=== PATIENT | female | born 1975 | race Caucasian/White ===

== ENCOUNTER 2017-04-20 08:02 | Emergency (ER) | payer OTHER, MEDICARE, MEDICAID ==
--- NOTE | 2017-04-20 08:27 | ERNOTE ---
Abdominal HPI - General Chief Complaint: Abdominal Pain Time Seen by Provider: 04/20/17 08:07 Source: patient, family Exam Limitations: no limitations - Immun/Allergies/Home Medications Allergies/Adverse Reactions: Allergies codeine [Codeine] Allergy (Unknown, Verified 04/20/17 08:10) Home Medications: HOME MEDICATIONS Calcium Carbonate [Calcium] 500 mg PO DAILY 11/14/12 [Last Taken 11/13/12 09:00] Docusate Sodium [Colace] 100 mg PO DAILY 11/14/12 [Last Taken 11/12/12 21:00] Phenytoin Sodium Extended [Dilantin] 200 mg PO BIDWM 11/14/12 [Last Taken 09:00] Ferrous Sulfate [Iron] 325 mg PO DAILY 09/21/15 [Last Taken Unknown] Phenytoin Sodium Extended [Dilantin] 200 mg PO TIDWM #60 capsule 09/21/15 [Last Taken Unknown] Naproxen [Naprosyn] 500 mg PO BID #60 tablet 04/20/17 [Last Taken Unknown] - History of Present Illness Narrative: Patient has had 2 days of right lower quadrant abdominal pain. Yesterday she had burning on urination today the pain just appears to be more settled in the right lower quadrant. She rates the pain as moderate to severe in intensity and even the ride over, the jostling of her abdomen, causes pain. Timing: getting worse Quality: moderate, severe Activities at Onset: none Modifying Factors - (Worsens): Present: movement Associated Symptoms: Present: denies symptoms Prior Abdominal Problems: Present: none Review of Systems - Review of Systems Constitutional: Present: recent illness EYE: Present: no symptoms reported ENT: Present: no symptoms reported Respiratory: Present: no symptoms reported Cardiology: Present: no symptoms reported Gastrointestinal/Abdominal: Present: See HPI Genitourinary: Present: no symptoms reported Musculoskeletal: Present: no symptoms reported Skin: Present: no symptoms reported Neurological: Present: no symptoms reported Endocrine: Present: no symptoms reported Hematologic/Lymphatic: Present: no symptoms reported Psych: Present: no symptoms reported - Patient's Past Medical History Patient History - Medical: Seizures, Other Patient History - Cardiac/Respiratory: No pertinent hx Patient History - Cancer: No Hx of Cancer Patient History - Surgical Procedures: D & C, T & A Patient History - Other: None - Social History Living Situations: home Abuse History: No History of abuse Psych History: No pertinent hx Alcohol Use: none Drug Use: none Physical Exam - Physical Exam General Appearance: Present: wd/wn, alert, moderate distress Eye Exam: Normal inspection: bilateral, PERRL: bilateral Ears, Nose, Throat: Present: normal ENT inspection, H, normal pharynx Neck: Present: normal inspection, nontender Respiratory: Present: no respiratory distress, normal breath sounds, no accessory muscle use, chest nontender, lungs clear Cardiovascular/Chest: Present: regular rate, rhythm, no murmur, normal peripheral pulses Gastrointestinal/Abdominal: Present: normal bowel sounds, nondistended, soft, tenderness, guarding Rectal Exam: Present: deferred Back Exam: Present: normal inspection, normal range of motion Extremity Exam: Present: normal inspection, non-tender, no edema, normal range of motion Neurological Exam: Present: alert, oriented, normal mood/affect Skin Exam: Present: normal color, warm/dry Lymphatic Exam: Present: no adenopathy ED Progress - Results and Orders Patient's Lab Results:: I have reviewed the patient's lab results. - Vital Signs Patient's Vital Signs:: I have reviewed the patient's vital signs. Vital Signs: Vital Signs 04/20/17 08:04 Temperature 36.0 C L Pulse Rate 97 Respiratory 12 Rate Blood Pressure 132/81 O2 Sat by Pulse 99 Oximetry - CT/Ultrasound CT/Ultrasound Narrative: CT of the abdomen and pelvis as well as ultrasound of the pelvis were reviewed by me - Progress/Reassessment Chief Complaint: Abdominal Pain Plan - Plan Plan: Patient has multiple uterine fibroids as well as ovarian cyst which could be causing which of the pelvic pain that she is having. 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 Departure Clinical Impression: Uterine fibroid Qualifiers: Uterine leiomyoma location: unspecified location Qualified Code(s): D25.9 - Leiomyoma of uterus, unspecified Ovarian cyst Qualifiers: Laterality: left Qualified Code(s): N83.202 - Unspecified ovarian cyst, left side - Departure Disposition: Home self-care Condition: Good Instructions: Ovarian Cyst, [id number], Uterine Fibroids, [id number] Additional Instructions: Call Dr. Redman for an appt to discuss the fibroids and ovarian cyst Referrals: Palani,Nisha, DO [Staff Physician] - Prescriptions: Naproxen [Naprosyn] 500 mg PO BID #60 tablet
[2017-04-20 08:31] LABS: Urine Bilirubin Negative (NEGATIVE); Urine Blood 250 /ul (NEGATIVE); Urine Ketone Negative (NEGATIVE); Urine Nitrite Negative (NEGATIVE); Urine Protein Negative (NEGATIVE); Urine Urobilinogen Normal (NORMAL)
[2017-04-20] MEDS ORDERED: DIATRIZOATE MEGLUMINE, SODIUM 30 ML BTL ONE (08:36)
[2017-04-20 08:40] LABS: Urine Appearance Slightly Cloudy; Urine Bacteria 2+; Urine Color Yellow; Urine WBC 0-5 /hpf (0-5)
[2017-04-20 08:41] LABS: Hematocrit 37.4 % (37.0-47.0); Hemoglobin 12.9 gm/dL (12.5-16.0); Mean Corpuscular Hemoglobin 30.4 pg (27-31); Mean Corpuscular Hgb Conc 34.5 g/dl (32-36); Mean Platelet Volume 9.2 fl (6.0-9.5); Neutrophil % 50.6 % (42-75.0); Platelet Count 315 K/mm3 (150-450); Red Blood Count 4.25 M/mm3 (4.2-5.4); Red Cell Distribution Width 12.8 % (11.5-14.0); White Blood Count 3.9 K/mm3 (4.0-10.5)
[2017-04-20] MEDS ORDERED: DIATRIZOATE MEGLUMINE, SODIUM 30 ML BTL PO ONE (08:42)
[2017-04-20 08:49] LABS: Albumin * 3.9 gm/dl (3.4-5.0); Anion Gap 14.9 mmol/L (6.8-13.8); Bilirubin, Total 0.2 mg/dL (0.0-1.1); Ca. Corrected For Albumin 8.4 mg/dL (8.4-10.2); Calcium * 8.6 mg/dL (7.9-10.9); Carbon Dioxide 26.1 mmol/L (24-32.6); Magnesium 1.9 mg/dL (1.2-2.8); Total Protein 7.9 gm/dL (6.2-8.2)
[2017-04-20 13:18] VITALS: BP 133/80
== END 2017-04-20 13:16 | disposition home or self-care (01) ==
LOC: ER 08:02
DX: D25.9 Leiomyoma of uterus, unspecified (principal); R56.9 Unspecified convulsions

== ENCOUNTER 2017-05-13 12:47 | Day surgery (SDC) | payer OTHER, MEDICARE, MEDICAID ==
[~2017-05-13 12:47] MED LIST: RINGER'S SOLUTION,LACTATED 1,000 ML IV PRN
[2017-05-13] MEDS ORDERED: BUPIVACAINE HCL/EPINEPHRINE 50 ML VIAL IJ ONE ×2 (14:20)
--- NOTE | 2017-05-13 15:11 | OR ---
Operative Report - Dictated Report Narrative: Operative report: 05/13/17 Preoperative diagnosis: Unable to tolerate exams in office, uterine fibroids, endocervical polyp Postoperative diagnosis: Same Procedure: exam under anesthesia, hysteroscopy, D&C, polypectomy Surgeon: Nisha Redman D.O. Hemstitcher: OR staff Anesthesia: Local and sedation IV fluids: 500 Milliliters EBL: min Milliliters Urine output: Not applicable Findings: approx. 15wk size globular uterus, mobile, elongated cervix, endocervical polyp half way within the canal, atrophic lining, normal shaped endometrial canal Drains: None Pathology: Endometrial curettings, endocervical polyp Complications: None Condition: Stable The patient was taken to the operating room. Anesthesia was found to be adequate. A bimanual exam was then performed and findings as noted above. The patient was prepped and draped in the normal sterile fashion in the dorsal lithotomy position. A sterile speculum was then inserted into the vagina. The anterior lip of the cervix was then grasped with a single-tooth tenaculum. Local anesthetic was then injected in the cervix. The hysteroscope was then inserted into the cervix. Hydrodistention was then used to enter into the cervix. The cervix was noted to be very long with an endocervical polyp in the middle portion of the cervix. The cavity was then surveyed and findings were noted as above. Hysteroscopic scissors were then used to cut the base of the polyp and polyp forceps then used to remove the polyp. The hysteroscope was then removed. The cervix was then sequentially dilated. A sharp curettage was then performed until the cry of the uterus was noted. Minimal bleeding was then noted from the cervix. Hysteroscopy was then performed and adequate curettage was noted throughout the entire cavity. The hysteroscope was then removed. The tenaculum was then removed. Hemostasis was noted. The speculum was then removed. All sponge lap and needle counts were correct 2. The patient was taken to the recovery room in stable condition.
[2017-05-13] MEDS ORDERED: ACETAMINOPHEN 500 MG TABLET PO PRN (15:14)
[2017-05-13] MEDS ORDERED: RINGER'S SOLUTION,LACTATED 1,000 ML IV PRN (15:16)
[2017-05-13 16:01] VITALS: BP 113/69
== END 2017-05-13 12:48 | disposition home or self-care (01) ==
LOC: AMB 12:47
PROVIDERS: ATTEND Obstetrics & Gynecology Gynecologic Oncology
PROC: 0UJD8ZZ Inspection of Uterus and Cervix, Via Natural or Artificial Opening Endoscopic (ICD-10-PCS; 2017-05-13)
PROC: 0UDB7ZX Extraction of Endometrium, Via Natural or Artificial Opening, Diagnostic (ICD-10-PCS; principal; 2017-05-13 15:00)
DX: N84.0 Polyp of corpus uteri (principal); N92.0 Excessive and frequent menstruation with regular cycle; G80.9 Cerebral palsy, unspecified; E66.9 Obesity, unspecified; Z68.32 Body mass index [BMI] 32.0-32.9, adult